=== PATIENT | female | born 1965 | race Asian ===

== ENCOUNTER 2018-08-10 11:38 | Emergency (ER) | payer OTHER ==
[~2018-08-10] VITALS: Ht 172.7 cm; Wt 83.9 kg
[2018-08-10 11:45] VITALS: TEMP 98
[2018-08-10 12:30] VITALS: BP 156/106
== END 2018-08-10 12:30 | disposition home or self-care (01) ==
LOC: ED 11:38
DX: F41.9 Anxiety disorder, unspecified (principal)
CPT/HCPCS: 96372; 99282; J2060